=== PATIENT | male | born 2000 | race Two or more races ===

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

== ENCOUNTER 2019-07-03 12:36 | Emergency (ER) | payer MEDICAID ==
[~2019-07-03] VITALS: Ht 182.9 cm; Wt 72.6 kg
[2019-07-03 13:58] VITALS: BP 142/77
== END 2019-07-03 15:03 | disposition home or self-care (01) ==
LOC: ER 12:43
DX: S60.022A Contusion of left index finger without damage to nail, initial encounter (principal); S60.032A Contusion of left middle finger without damage to nail, initial encounter; S60.042A Contusion of left ring finger without damage to nail, initial encounter; W22.8XXA Striking against or struck by other objects, initial encounter; Y93.89 Activity, other specified; Y92.89 Other specified places as the place of occurrence of the external cause; Y99.8 Other external cause status
CPT/HCPCS: 73130

== ENCOUNTER 2021-08-26 15:17 | Emergency (ER) | payer MEDICAID ==
[~2021-08-26] VITALS: Ht 182.9 cm; Wt 72.6 kg
[2021-08-26 15:24] VITALS: BP 119/80
[2021-08-26] MEDS ORDERED: LIDOCAINE W/ EPINEPHRINE 2% INJ 20ML VIAL IJ ONE (19:00)
[2021-08-26] MEDS ORDERED: TETANUS-DIPTH-ACEL PERTUSSIS 0.5ML SYR Tdap IM ONE (19:00)
[2021-08-26] MEDS ORDERED: BACITRACIN TOP OINT 1 UD PKG TOP ONE (19:00)
[2021-08-26] MEDS ORDERED: LIDOCAINE 1% HCL (LOCAL ANESTH.) INJ 20ML MDV ONE (19:30)
[2021-08-26] MEDS ORDERED: LIDOCAINE HCL 2% TOP JELLY 5ML TOP ONE (19:45)
[2021-08-26] MEDS ORDERED: BAC09TP TOP (20:33)
[2021-08-26] MEDS ORDERED: IBUP600T28 PO (20:33)
[2021-08-26] MEDS ORDERED: IBUPROFEN 600 MG TAB PO ONE (20:45)
== END 2021-08-26 21:11 | disposition home or self-care (01) ==
LOC: ER 15:17
DX: S01.511A Laceration without foreign body of lip, initial encounter (principal); S50.311A Abrasion of right elbow, initial encounter; Z79.1 Long term (current) use of non-steroidal anti-inflammatories (NSAID); Z79.2 Long term (current) use of antibiotics; Y04.2XXA Assault by strike against or bumped into by another person, initial encounter; Y93.89 Activity, other specified; Y92.89 Other specified places as the place of occurrence of the external cause; Y99.8 Other external cause status
CPT/HCPCS: 12013; 90471; 90715; 99283; J2001

== ENCOUNTER 2021-08-29 11:36 | Emergency (ER) | payer MEDICAID ==
[~2021-08-29] VITALS: Ht 182.9 cm; Wt 72.6 kg
[~2021-08-29 11:36] MED LIST: BAC09TP TOP; IBUP600T28 PO
[2021-08-29 12:09] VITALS: BP 130/82
== END 2021-08-29 12:39 | disposition home or self-care (01) ==
LOC: ER 11:36
DX: S01.511D Laceration without foreign body of lip, subsequent encounter (principal); X58.XXXD Exposure to other specified factors, subsequent encounter

== ENCOUNTER 2021-09-04 23:28 | Emergency (ER) | payer MEDICAID ==
[~2021-09-04] VITALS: Ht 182.9 cm; Wt 72.6 kg
[2021-09-04 23:28] VITALS: BP 113/82
== END 2021-09-05 04:01 | disposition left against medical advice (07) ==
LOC: ER 23:32
DX: Z48.01 Encounter for change or removal of surgical wound dressing (principal); Z53.21 Procedure and treatment not carried out due to patient leaving prior to being seen by health care provider

== ENCOUNTER 2021-09-06 12:40 | Emergency (ER) | payer MEDICAID ==
[~2021-09-06] VITALS: Ht 182.9 cm; Wt 72.6 kg
[2021-09-06 13:03] VITALS: BP 122/79
== END 2021-09-06 13:11 | disposition home or self-care (01) ==
LOC: ER 12:40
DX: S01.511D Laceration without foreign body of lip, subsequent encounter (principal); X58.XXXD Exposure to other specified factors, subsequent encounter